=== PATIENT | male | born 2000 | race Caucasian/White ===

== ENCOUNTER 2021-07-17 18:47 | Emergency (ER) | payer SELFPAY ==
[~2021-07-17] VITALS: Ht 182.9 cm; Wt 72.6 kg
[2021-07-17] MEDS ORDERED: TYLOPHEN500 MG PO (19:08)
== END 2021-07-17 19:42 | disposition home or self-care (01) ==
LOC: ED 18:47
DX: R06.00 Dyspnea, unspecified (principal)
CPT/HCPCS: 99284

== ENCOUNTER 2021-09-25 11:14 | Emergency (ER) | payer BC ==
[~2021-09-25] VITALS: Ht 182.9 cm; Wt 73.8 kg
[~2021-09-25 11:14] MED LIST: TYLOPHEN500 MG PO
--- OUTSIDE RECORDS SUMMARY | 2021-09-25 11:22 | XMS ---
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 [facility] has no Care Guidelines for this patient. Kari VISIT COUNT (12 MO.) 6 [place] [address] TOTAL 8 NOTE: Visits indicate total known visits. ED/UCC VISIT TRACKING (12 MO.) 09/25/2021 11:14 JOSE FRANCISCO Vasquez [place] TYPE: Emergency COMPLAINT: - ANXIETY 07/17/2021 18:48 [facility] [place] [facility] [place] TYPE: Emergency COMPLAINT: - DIFFICULTY BREATHING DIAGNOSES: - Shortness of breath - Dyspnea, unspecified 06/10/2021 15:37 [employer] OR TYPE: Emergency COMPLAINT: - chest pain DIAGNOSES: - chest pain 05/01/2021 08:44 [employer] OR TYPE: Emergency DIAGNOSES: - Anxiety disorder, unspecified - dizziness 04/14/2021 17:09 [facility] Emergency DIAGNOSES: - Chest pain, unspecified - CHEST PAIN 04/01/2021 19:34 [employer] [place] OR TYPE: Emergency DIAGNOSES: - dizzy - Dehydration - Generalized anxiety disorder 10/13/2020 09:39 [employer] [place] OR TYPE: Emergency DIAGNOSES: - OVER MEDICATED HEART RACING - Anxiety disorder, unspecified - Palpitations 10/11/2020 16:04 [employer] [place] OR TYPE: Emergency DIAGNOSES: - CHEST HEAVINESS AND DIFFICULTY BREATHING - Other chest pain INPATIENT VISIT TRACKING (12 MO.) No inpatient visits to display in this time frame [id number]
--- NOTE | 2021-09-25 19:57 | EKG ---
[facility] [address] [place], [place] [address] Signed Normal sinus rhythm Rightward axis Borderline ECG No previous ECGs available Confirmed by WILL RODRIGUEZ DO ([id number]) on 09/25/2021 7:57:17 PM Electronically Signed By: WILL RODRIGUEZ DO 09/25/211956 PATIENT NAME: JILILIANA DE Electrocardiogram DATE OF : [birth year] PHYSICIAN: WILL RODRIGUEZ DO REPORT #: [id number] REPORT IS CONFIDENTIAL AND NOT TO BE RELEASED WITHOUT AUTHORIZATION
== END 2021-09-25 18:15 | disposition home or self-care (01) ==
LOC: ED 11:14
DX: F41.9 Anxiety disorder, unspecified (principal)
CPT/HCPCS: 71046; 93005; 93010; 99283-25

== ENCOUNTER 2021-09-30 09:48 | Emergency (ER) | payer BC ==
[~2021-09-30] VITALS: Ht 182.9 cm; Wt 72.7 kg
--- OUTSIDE RECORDS SUMMARY | 2021-09-30 09:56 | XMS ---
PreManage Notification: ILIANA LEY Security Flooring Machine Feeder Events No recent Security Events currently on file CRITERIA MET - [facility] - 2 Visits in 30 Days - 6 ED Visits in 6 Months CARE PROVIDERS There are no care providers on record at this time. [facility] has no Care Guidelines for this patient. Kari VISIT COUNT (12 MO.) 6 [facility] NOTE: Visits indicate total known visits. ED/UCC VISIT TRACKING (12 MO.) 09/30/2021 09:49 [facility] [place] TYPE: Emergency COMPLAINT: - CONGESTION 09/25/2021 11:14 [facility] FRANC[facility]CO Vasquez OR TYPE: Emergency COMPLAINT: - ANXIETY DIAGNOSES: - Anxiety disorder, unspecified 07/17/2021 18:48 [facility]CO [facility] [place] TYPE: Emergency COMPLAINT: - DIFFICULTY BREATHING DIAGNOSES: - Shortness of breath - Dyspnea, unspecified 06/10/2021 15:37 [facility] [employer] [place] TYPE: Emergency COMPLAINT: - chest pain DIAGNOSES: - chest pain 05/01/2021 08:44 [facility] TYPE: Emergency DIAGNOSES: - Anxiety disorder, unspecified - dizziness 04/14/2021 17:09 [facility] [place] TYPE: Emergency DIAGNOSES: - Chest pain, unspecified - CHEST PAIN 04/01/2021 19:34 [employer] [employer] [place] TYPE: Emergency DIAGNOSES: - dizzy - Dehydration - Generalized anxiety disorder 10/13/2020 09:39 [employer] [place] TYPE: Emergency DIAGNOSES: - OVER MEDICATED HEART RACING - Anxiety disorder, unspecified - Palpitations 10/11/2020 16:04 [employer] [place] TYPE: Emergency DIAGNOSES: - CHEST HEAVINESS AND DIFFICULTY BREATHING - Other chest pain INPATIENT VISIT TRACKING (12 MO.) No inpatient visits to display in this time frame [email or web address][employer] [id number]
[2021-09-30] MEDS ORDERED: ATIVAN1 MG PO (14:56)
== END 2021-09-30 15:03 | disposition home or self-care (01) ==
LOC: ED 09:48
DX: F41.9 Anxiety disorder, unspecified (principal)
CPT/HCPCS: 99283

== ENCOUNTER 2021-12-19 13:27 | Emergency (ER) | payer BC ==
[~2021-12-19] VITALS: Ht 182.9 cm; Wt 71.4 kg
[~2021-12-19 13:27] MED LIST changes: +ATIVAN1 MG PO
--- OUTSIDE RECORDS SUMMARY | 2021-12-19 13:30 | XMS ---
PreManage Notification: ILIANA LEY Security Pattern Maker Events No recent Security Events currently on file CRITERIA MET - Group Notification CARE PROVIDERS SARAH [facility] Current PHONE: Unknown Willow has no Care Guidelines for this patient. Care History Medical/Surgical 10/01/2021 [facility] - CHW CONTACTED PATIENT-PATIENT STATED HE JUST MOVED TO THE AREA AND DID NOT WANT TO PROVIDE HIS CURRENT ADDRESS. - PATIENT STATED HE WILL LOOK AT THE PROVIDER LIST THE ED PROVIDED AND SET UP A PCP IN THE AREA. - CHW ASKED IF HE WOULD LIKE ASSISTANCE WITH SETTING UP AN APT AND PATIENT DECLINED. E.D. VISIT COUNT (12 MO.) 4 [facility] 4 [facility] TOTAL 8 NOTE: Visits indicate total known visits. ED/UCC VISIT TRACKING (12 MO.) 12/19/2021 13:28 [facility] FR[facility]CO [facility] [place] TYPE: Emergency COMPLAINT: - L SIDE RIB PAIN, DIFFICULTY BREATHING 09/30/2021 09:49 [facility] OR TYPE: Emergency COMPLAINT: - CONGESTION DIAGNOSES: - Anxiety disorder, unspecified 09/25/2021 11:14 [facility] OR TYPE: Emergency COMPLAINT: - ANXIETY DIAGNOSES: - Anxiety disorder, unspecified 07/17/2021 18:48 [facility] [place] TYPE: Emergency COMPLAINT: - DIFFICULTY BREATHING DIAGNOSES: - Shortness of breath - Dyspnea, unspecified 06/10/2021 15:37 [employer] OR TYPE: Emergency COMPLAINT: - chest pain DIAGNOSES: - chest pain 05/01/2021 08:44 [employer] OR TYPE: Emergency DIAGNOSES: - Anxiety disorder, unspecified - dizziness 04/14/2021 17:09 [employer] OR TYPE: Emergency DIAGNOSES: - Chest pain, unspecified - CHEST PAIN 04/01/2021 19:34 [facility] OR TYPE: Emergency DIAGNOSES: - dizzy - Dehydration - Generalized anxiety disorder INPATIENT VISIT TRACKING (12 MO.) No inpatient visits to display in this time frame [id number]
[2021-12-19] MEDS ORDERED: HYDROXYZINE HCL25 MG PO (14:15)
--- NOTE | 2021-12-19 18:03 | EKG ---
[facility] [address] [place] [address] Signed Normal sinus rhythm Normal ECG When compared with ECG of 25-SEP-2021 12:03, No significant change was found Confirmed by RAZIA PARRA MD ([id number]) on 12/19/2021 6:03:21 PM Electronically Signed By: RAZIA PARRA MD 12/19/211802 PATIENT NAME: ILIANA LEY CA Electrocardiogram DATE OF : [birth year] PHYSICIAN: RAZIA PARRA MD REPORT #: [id number] REPORT IS CONFIDENTIAL AND NOT TO BE RELEASED WITHOUT AUTHORIZATION
== END 2021-12-19 14:30 | disposition home or self-care (01) ==
LOC: ED 13:27
DX: R07.89 Other chest pain (principal); F41.9 Anxiety disorder, unspecified
CPT/HCPCS: 71046; 93005; 93010; 99285-25; A9270

== ENCOUNTER → 2022-01-18 | Emergency (ER) | payer BC ==
[~2022-01-18] VITALS: Ht 182.9 cm; Wt 68.9 kg
[~2022-01-18] MED LIST changes: +HYDROXYZINE HCL25 MG PO; +XANAX0.5 MG PO
--- OUTSIDE RECORDS SUMMARY | 2022-01-18 19:34 | XMS ---
PreManage Notification: ILIANA LEY Security Professional Development Manager Events No recent Security Events currently on file CRITERIA MET - [facility] - 2 Visits in 30 Days CARE PROVIDERS DEBBIE MICHAEL Physician Wine Blender Current PHONE: [phone] ANABELLA SMITH [facility] Current PHONE: Unknown [facility] has no Care Guidelines for this patient. Care History Medical/Surgical 10/01/2021 [facility] - CHW CONTACTED PATIENT-PATIENT STATED HE JUST MOVED TO THE AREA AND DID NOT WANT TO PROVIDE HIS CURRENT ADDRESS. - PATIENT STATED HE WILL LOOK AT THE PROVIDER LIST THE ED PROVIDED AND SET UP A PCP IN THE AREA. - CHW ASKED IF HE WOULD LIKE ASSISTANCE WITH SETTING UP AN APT AND PATIENT DECLINED. E.D. VISIT COUNT (12 MO.) 4 [facility] [address] [facility] [address] [place] TOTAL 9 NOTE: Visits indicate total known visits. ED/UCC VISIT TRACKING (12 MO.) 01/18/2022 19:27 [facility] [place] TYPE: Emergency COMPLAINT: - CHEST PAIN 12/19/2021 13:28 [facility] [place] TYPE: Emergency COMPLAINT: - L SIDE RIB PAIN, DIFFICULTY BREATHING DIAGNOSES: - Anxiety disorder, unspecified - Other chest pain 09/30/2021 09:49 [facility] [place] TYPE: Emergency COMPLAINT: - CONGESTION DIAGNOSES: - Anxiety disorder, unspecified 09/25/2021 11:14 [facility] [place] TYPE: Emergency COMPLAINT: - ANXIETY DIAGNOSES: - Anxiety disorder, unspecified 07/17/2021 18:48 [facility] [place] TYPE: Emergency COMPLAINT: - DIFFICULTY BREATHING DIAGNOSES: - Shortness of breath - Dyspnea, unspecified 06/10/2021 15:37 [facility] [place] TYPE: Emergency COMPLAINT: - chest pain DIAGNOSES: - chest pain 05/01/2021 08:44 [facility] OR TYPE: Emergency DIAGNOSES: - Anxiety disorder, unspecified - dizziness 04/14/2021 17:09 [facility] OR TYPE: Emergency DIAGNOSES: - Chest pain, unspecified - CHEST PAIN 04/01/2021 19:34 [facility] [place] TYPE: Emergency DIAGNOSES: - dizzy - Dehydration - Generalized anxiety disorder INPATIENT VISIT TRACKING (12 MO.) No inpatient visits to display in this time frame [email or web address]
--- NOTE | 2022-01-19 08:08 | EKG ---
[facility] [address] [place], [place] [address] Signed Normal sinus rhythm Normal ECG No previous ECGs available Confirmed by DANIELLE MALDONADO MD ([id number]) on 01/19/2022 8:07:41 AM Electronically Signed By: DANIELLE MALDONADO MD 01/19/22 0808 PATIENT NAME: ILIANA LEY REINASUZANNAMILY ND Electrocardiogram DATE OF : [birth year] PHYSICIAN: DANIELLE MALDONADO MD REPORT #: [id number] REPORT IS CONFIDENTIAL AND NOT TO BE RELEASED WITHOUT AUTHORIZATION
== END ==
LOC: ED 19:27
DX: F41.9 Anxiety disorder, unspecified (principal); F32.A Depression, unspecified
CPT/HCPCS: 93005; 93010; 99283-25

== ENCOUNTER 2022-02-26 | Emergency (ER) | payer BC ==
[~2022-02-26] VITALS: Ht 182.9 cm; Wt 73.0 kg
--- OUTSIDE RECORDS SUMMARY | 2022-02-26 00:05 | XMS ---
PreManage Notification: ILIANA LEY Security Publications Sales Representative Events 1 event(s) in the past 18 months Most recent security events: Other at [facility] 02/03/2022 10:03 Details: PATIENT LWBS CRITERIA MET - 6 ED Visits in 6 Months - [facility] - 2 Visits in 30 Days CARE PROVIDERS DEBBIE MICHAEL Physician Bodybuilder Current PHONE: [phone] ANABELLA SMITH [facility] Current PHONE: Unknown [facility] has no Care Guidelines for this patient. Care History Medical/Surgical 10/01/2021 [facility] - CHW CONTACTED PATIENT-PATIENT STATED HE JUST MOVED TO THE AREA AND DID NOT WANT TO PROVIDE HIS CURRENT ADDRESS. - PATIENT STATED HE WILL LOOK AT THE PROVIDER LIST THE ED PROVIDED AND SET UP A PCP IN THE AREA. - CHW ASKED IF HE WOULD LIKE ASSISTANCE WITH SETTING UP AN APT AND PATIENT DECLINED. E.D. VISIT COUNT (12 MO.) 5 [facility] 7 [facility] [address] [facility] [place] TOTAL 12 NOTE: Visits indicate total known visits. ED/UCC VISIT TRACKING (12 MO.) 02/26/2022 00:02 [facility] [place] TYPE: Emergency COMPLAINT: - VISION PROBLEM/ EYE PAIN 02/12/2022 11:09 [facility] [place] TYPE: Emergency DIAGNOSES: - Laceration without foreign body of left hand, initial encounter - Laceration without foreign body of unspecified finger without damage to nail, initial encounter - LEFT HAND LACERATION OJI 02/12/22 02/03/2022 10:03 [facility]CO [facility] [place] TYPE: Emergency COMPLAINT: - NAUSEA, PANICK ATTACKS, HEADACHE 01/18/2022 19:27 [facility] [place] TYPE: Emergency COMPLAINT: - CHEST PAIN DIAGNOSES: - Anxiety disorder, unspecified - Other chest pain - DEPRESSION, UNSPECIFIED - Depression, unspecified 12/19/2021 13:28 [facility] [place] TYPE: Emergency COMPLAINT: - L SIDE RIB PAIN, DIFFICULTY BREATHING DIAGNOSES: - Anxiety disorder, unspecified - Other chest pain 09/30/2021 09:49 [facility] [place] TYPE: Emergency COMPLAINT: - CONGESTION DIAGNOSES: - Anxiety disorder, unspecified 09/25/2021 11:14 [facility] [facility] [place] TYPE: Emergency COMPLAINT: - ANXIETY DIAGNOSES: - Anxiety disorder, unspecified 07/17/2021 18:48 [facility] [facility] [place] TYPE: Emergency COMPLAINT: - DIFFICULTY BREATHING DIAGNOSES: - Shortness of breath - Dyspnea, unspecified 06/10/2021 15:37 [facility] OR TYPE: Emergency COMPLAINT: - chest pain DIAGNOSES: - chest pain 05/01/2021 08:44 [facility] [place] TYPE: Emergency DIAGNOSES: - Anxiety disorder, unspecified - dizziness 04/14/2021 17:09 [facility] OR TYPE: Emergency DIAGNOSES: - Chest pain, unspecified - CHEST PAIN 04/01/2021 19:34 [facility] OR TYPE: Emergency DIAGNOSES: - dizzy - Dehydration - Generalized anxiety disorder INPATIENT VISIT TRACKING (12 MO.) No inpatient visits to display in this time frame [id number]
[2022-02-26] MEDS ORDERED: LAMOTRIGINE25 MG PO (00:20)
[2022-02-26] MEDS ORDERED: LORAZEPAM1 MG PO (00:21)
== END 2022-02-26 01:19 | disposition home or self-care (01) ==
LOC: ED
DX: H16.133 Photokeratitis, bilateral (principal); Z79.899 Other long term (current) drug therapy
CPT/HCPCS: 99283; A9270

== ENCOUNTER 2022-03-05 03:03 | Emergency (ER) | payer BC, OTHER ==
[~2022-03-05] VITALS: Ht 182.9 cm; Wt 72.6 kg
[~2022-03-05 03:03] MED LIST changes: +LAMOTRIGINE25 MG PO; +LORAZEPAM1 MG PO
--- OUTSIDE RECORDS SUMMARY | 2022-03-05 03:06 | XMS ---
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 Care History Medical/Surgical 10/01/2021 [facility] - CHW CONTACTED PATIENT-PATIENT STATED [...] DECLINED. E.D. VISIT COUNT (12 MO.) 5 [facility] [address] [facility] [address] Kurt [place] TOTAL 13 NOTE: Visits indicate total known visits. ED/UCC VISIT TRACKING (12 MO.) 03/05/2022 03:04 [facility] FR[facility]CO [place] TYPE: Emergency COMPLAINT: - MEDICATION PROBLEM 02/26/2022 00:02 [facility] [place] TYPE: Emergency COMPLAINT: - VISION PROBLEM/ EYE PAIN DIAGNOSES: - Photokeratitis, bilateral - Other snf (current) drug therapy - Other specified disorders of eye and adnexa - Other keratitis 02/12/2022 11:09 [facility] OR TYPE: Emergency DIAGNOSES: - Laceration without foreign body of left hand, initial encounter - Laceration without foreign body of unspecified finger without damage to nail, initial encounter - LEFT HAND LACERATION FRANKIE 02/12/22 02/03/2022 10:03 [facility]CO [facility] [place] TYPE: Emergency COMPLAINT: - NAUSEA, PANICK ATTACKS, HEADACHE 01/18/2022 19:27 [facility] [place] TYPE: Emergency COMPLAINT: - CHEST PAIN DIAGNOSES: - Anxiety disorder, unspecified - Other chest pain - DEPRESSION, UNSPECIFIED - Depression, unspecified 12/19/2021 13:28 [facility] [place] TYPE: [...] of breath - Dyspnea, unspecified 06/10/2021 15:37 [facility] [place] TYPE: Emergency COMPLAINT: - chest pain DIAGNOSES: - chest pain 05/01/2021 08:44 [facility] [place] TYPE: Emergency DIAGNOSES: - Anxiety disorder, unspecified - dizziness 04/14/2021 17:09 [facility] [place] TYPE: Emergency DIAGNOSES: - Chest pain, unspecified - CHEST PAIN 04/01/2021 19:34 [facility] [place] TYPE: Emergency DIAGNOSES: - dizzy - Dehydration - Generalized anxiety disorder INPATIENT VISIT TRACKING (12 MO.) No inpatient visits to display in this time frame [email or web address]
== END 2022-03-05 05:04 | disposition home or self-care (01) ==
LOC: ED 03:03
DX: F32.A Depression, unspecified (principal); Z79.899 Other long term (current) drug therapy
CPT/HCPCS: 99282

== ENCOUNTER 2022-03-13 22:34 | Emergency (ER) | payer BC, OTHER ==
[~2022-03-13] VITALS: Ht 182.9 cm; Wt 72.6 kg
--- OUTSIDE RECORDS SUMMARY | 2022-03-13 22:36 | XMS ---
PreManage Notification: ILIANA LEY Security Radiologic Technician Events 1 event(s) in the past 18 months Most recent security events: Other at [facility] 02/03/2022 10:03 Details: PATIENT LWBS CRITERIA MET - PDMP - [facility] - 2 Visits in 30 Days - 6 ED Visits in 6 Months CARE PROVIDERS DEBBIE MICHAEL Physician Automobile Glass Technician Current PHONE: [phone] ANABELLA SMITH [facility] Current PHONE: Unknown Willow has no Care Guidelines for this patient. Care History Medical/Surgical 10/01/2021 [facility] - CHW CONTACTED PATIENT-PATIENT STATED HE [...] E.D. VISIT COUNT (12 MO.) 5 [facility] [address] [facility] [address] [place] TOTAL 14 NOTE: Visits indicate total known visits. ED/UCC VISIT TRACKING (12 MO.) 03/13/2022 22:35 [facility] [place] TYPE: Emergency COMPLAINT: - CHEST PAIN 03/05/2022 03:04 [facility] [place] TYPE: Emergency COMPLAINT: - MEDICATION PROBLEM DIAGNOSES: - Anxiety disorder, unspecified - Other camouflage specialist (current) drug therapy - Depression, unspecified 02/26/2022 00:02 [facility] [place] TYPE: Emergency COMPLAINT: - VISION PROBLEM/ EYE PAIN DIAGNOSES: - Photokeratitis, bilateral - Other intermediate (current) drug therapy - Other specified disorders of eye and adnexa - Other keratitis 02/12/2022 11:09 [facility] OR TYPE: Emergency DIAGNOSES: - Laceration without foreign body of left hand, initial encounter - Laceration without foreign body of unspecified finger without damage to nail, initial encounter - LEFT HAND LACERATION FRANKIE 02/12/22 02/03/2022 10:03 [facility] [place] TYPE: Emergency COMPLAINT: - NAUSEA, PANICK ATTACKS, HEADACHE 01/18/2022 19:[address] [facility] [address] [place] TYPE: Emergency COMPLAINT: - CHEST PAIN DIAGNOSES: - Anxiety disorder, unspecified - Other chest pain - DEPRESSION, UNSPECIFIED - Depression, unspecified 12/19/2021 13:28 [facility] [place] TYPE: Emergency COMPLAINT: - L SIDE RIB PAIN, DIFFICULTY BREATHING DIAGNOSES: - Anxiety disorder, unspecified - Other chest pain 09/30/2021 09:[address] [facility] [address] [place] TYPE: Emergency COMPLAINT: - CONGESTION DIAGNOSES: - Anxiety disorder, unspecified 09/25/2021 11:14 [facility] [place] TYPE: Emergency COMPLAINT: - ANXIETY DIAGNOSES: - Anxiety disorder, unspecified 07/17/2021 18:48 [facility] [place] TYPE: Emergency COMPLAINT: - DIFFICULTY BREATHING DIAGNOSES: - Shortness of breath - Dyspnea, unspecified 06/10/2021 15:37 [employer] [place] TYPE: Emergency COMPLAINT: - chest pain DIAGNOSES: - chest pain 05/01/2021 08:44 [facility]: Emergency DIAGNOSES: - Anxiety disorder, unspecified - dizziness 04/14/2021 17:09 [facility] [place] TYPE: Emergency DIAGNOSES: - Chest pain, unspecified - CHEST PAIN 04/01/2021 19:34 [facility] OR TYPE: Emergency DIAGNOSES: - dizzy - Dehydration - Generalized anxiety disorder INPATIENT VISIT TRACKING (12 MO.) No inpatient visits to display in this time frame [id number]
[2022-03-13] MEDS ORDERED: HYDROXYZINE HCL25 MG PO (22:45)
--- NOTE | 2022-03-14 15:35 | EKG ---
[facility] [address] [facility] [place], [place] [address] Signed Normal sinus rhythm Normal ECG No previous ECGs available Confirmed by RAZIA PARRA MD ([id number]) on 03/14/2022 3:34:58 PM Electronically Signed By: RAZIA PARRA MD 03/14/22 1535 PATIENT NAME: JILILIANA IA Electrocardiogram DATE OF : [birth year] PHYSICIAN: RAZIA PARRA MD REPORT #: [id number] REPORT IS CONFIDENTIAL AND NOT TO BE RELEASED WITHOUT AUTHORIZATION
== END 2022-03-13 23:45 | disposition home or self-care (01) ==
LOC: ED 22:34
DX: R07.89 Other chest pain (principal); Z79.899 Other long term (current) drug therapy
CPT/HCPCS: 36415; 71046; 84484; 85379; 93005; 93010; 99285-25

== ENCOUNTER 2022-03-23 02:22 | Emergency (ER) | payer BC, OTHER ==
[~2022-03-23] VITALS: Ht 182.9 cm; Wt 79.0 kg
--- OUTSIDE RECORDS SUMMARY | 2022-03-23 02:24 | XMS ---
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 E.D. VISIT COUNT (12 MO.) 5 [facility] [address] [facility] [address] [place] TOTAL 16 NOTE: Visits indicate total known visits. ED/UCC VISIT TRACKING (12 MO.) 03/23/2022 02:23 [facility] [place] TYPE: Emergency COMPLAINT: - CHEST PAIN 03/16/2022 16:00 [facility] [place] TYPE: Emergency COMPLAINT: - NAUSEA,WEAKNESS DIAGNOSES: - Headache, unspecified - Other malaise - Generalized hyperhidrosis - Nausea 03/13/2022 22:35 [facility] [address] [place] TYPE: Emergency COMPLAINT: - CHEST PAIN DIAGNOSES: - Other refining still operator (current) drug therapy - Other chest pain 03/05/2022 03:04 [facility] [place] TYPE: Emergency COMPLAINT: - MEDICATION PROBLEM DIAGNOSES: - Anxiety disorder, unspecified - Other refining still operator (current) drug therapy - Depression, unspecified 02/26/2022 00:[address] [facility] [address] [facility] [place] TYPE: Emergency COMPLAINT: - VISION PROBLEM/ EYE PAIN DIAGNOSES: - Photokeratitis, bilateral - Other refining still operator (current) drug therapy - Other specified disorders of eye and adnexa - Other keratitis 02/12/2022 11:09 [facility] OR TYPE: Emergency DIAGNOSES: - Laceration [...] breath - Dyspnea, unspecified 06/10/2021 15:37 [facility] OR TYPE: Emergency COMPLAINT: - chest pain DIAGNOSES: - chest pain 05/01/2021 08:44 [employer] [place] TYPE: Emergency DIAGNOSES: - Anxiety disorder, unspecified - dizziness 04/14/2021 17:09 [facility] [facility] [place] TYPE: Emergency DIAGNOSES: - Chest pain, unspecified - CHEST PAIN 04/01/2021 19:34 Count Includes [facility] [employer] [place] TYPE: Emergency DIAGNOSES: - dizzy - Dehydration - Generalized anxiety disorder INPATIENT VISIT TRACKING (12 MO.) No inpatient visits to display in this time frame [id number]
--- NOTE | 2022-03-23 08:59 | EKG ---
[facility] [address] [facility] [address] [facility] [place] [address] Signed Normal sinus rhythm with sinus arrhythmia Normal ECG When compared with ECG of 16-MAR-2022 17:40, No significant change was found Confirmed by RAZIA PARRA MD ([id number]) on 03/23/2022 8:59:04 AM Electronically Signed By: RAZIA PARRA MD 03/23/22 0859 PATIENT NAME: ILIANA LEY NE Electrocardiogram DATE OF : [birth year] PHYSICIAN: RAZIA PARRA MD REPORT #: [id number] REPORT IS CONFIDENTIAL AND NOT TO BE RELEASED WITHOUT AUTHORIZATION
== END 2022-03-23 03:27 | disposition home or self-care (01) ==
LOC: ED 02:22
DX: R07.89 Other chest pain (principal); Z79.899 Other long term (current) drug therapy
CPT/HCPCS: 71045; 93005; 93010; 99285-25

== ENCOUNTER 2022-04-11 19:48 | Emergency (ER) | payer BC, OTHER ==
[~2022-04-11] VITALS: Ht 182.9 cm; Wt 78.9 kg
--- OUTSIDE RECORDS SUMMARY | 2022-04-11 19:52 | XMS ---
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 Care History Medical/Surgical 10/01/2021 [facility] - CHW CONTACTED PATIENT-PATIENT STATED [...] PATIENT DECLINED. E.D. VISIT COUNT (12 MO.) [address] [place] [address] 12 [facility] TOTAL 16 NOTE: Visits indicate total known visits. ED/UCC VISIT TRACKING (12 MO.) 04/11/2022 19:49 [facility] [place] TYPE: Emergency COMPLAINT: - HEAD PRESSURE 03/23/2022 02:23 [facility] [place] TYPE: Emergency COMPLAINT: - CHEST PAIN DIAGNOSES: - Other rat exterminator (current) drug therapy - Other chest pain 03/16/2022 16:00 [facility] [place] TYPE: Emergency COMPLAINT: - NAUSEA,WEAKNESS DIAGNOSES: - Headache, unspecified - Other malaise - Generalized hyperhidrosis - Nausea 03/13/2022 22:35 [facility] [place] TYPE: Emergency COMPLAINT: - CHEST PAIN DIAGNOSES: - Other fpc (current) drug therapy - Other chest pain 03/05/2022 03:04 [facility] [place] TYPE: Emergency COMPLAINT: - MEDICATION PROBLEM DIAGNOSES: - Anxiety disorder, unspecified - Other fpc (current) drug therapy - Depression, unspecified 02/26/2022 00:02 [facility] [place] TYPE: Emergency COMPLAINT: - VISION PROBLEM/ EYE PAIN DIAGNOSES: - Photokeratitis, bilateral - Other fpc (current) drug therapy - Other specified disorders of eye and adnexa - Other keratitis 02/12/2022 11:09 [facility] [place] TYPE: Emergency DIAGNOSES: - Laceration [...] of breath - Dyspnea, unspecified 06/10/2021 15:37 [facility] [place] TYPE: Emergency COMPLAINT: - chest pain DIAGNOSES: - chest pain 05/01/2021 08:44 [facility] [place] TYPE: Emergency DIAGNOSES: - Anxiety disorder, unspecified - dizziness 04/14/2021 17:09 [facility] [place] TYPE: Emergency DIAGNOSES: - Chest pain, unspecified - CHEST PAIN INPATIENT VISIT TRACKING (12 MO.) No inpatient visits to display in this time frame [id number]
[2022-04-11] MEDS ORDERED: BUTALB-ACETAMI1 EACH PO (22:49)
== END 2022-04-11 23:23 | disposition home or self-care (01) ==
LOC: ED 19:48
DX: R51.9 Headache, unspecified (principal); F41.9 Anxiety disorder, unspecified
CPT/HCPCS: 96374; 96375; 99283-25; J1200; J1885; J3030; J7030

== ENCOUNTER 2022-04-15 01:14 | Emergency (ER) | payer BC, OTHER ==
[~2022-04-15] VITALS: Ht 182.9 cm; Wt 78.9 kg
[~2022-04-15 01:14] MED LIST changes: +BUTALB-ACETAMI1 EACH PO
--- OUTSIDE RECORDS SUMMARY | 2022-04-15 01:16 | XMS ---
PreManage Notification: ILIANA LEY Security Campaign Coordinator Events 1 event(s) in the past 18 months Most recent security events: Other at [facility] 02/03/2022 10:03 Details: PATIENT LWBS CRITERIA MET - [facility] - 2 Visits in 30 Days - PDMP - 6 ED Visits in 6 Months CARE PROVIDERS DEBBIE MICHAEL Physician Cardroom Drawing Runner Current PHONE: [phone] ANABELLA SMITH [facility] Current PHONE: Unknown Willow has no Care Guidelines for this patient. Care History Medical/Surgical 10/01/2021 [facility] - CHW CONTACTED PATIENT-PATIENT STATED HE JUST MOVED TO THE AREA AND DID NOT WANT TO PROVIDE HIS CURRENT ADDRESS. - PATIENT STATED HE WILL LOOK AT THE PROVIDER LIST THE ED PROVIDED AND SET UP A PCP IN THE AREA. - CHW ASKED IF HE WOULD LIKE ASSISTANCE WITH SETTING UP AN APT AND PATIENT DECLINED. E.D. VISIT COUNT (12 MO.) 3 [facility] 13 [facility] [place] TOTAL 16 NOTE: Visits indicate total known visits. ED/UCC VISIT TRACKING (12 MO.) 2022 01:15 [facility] [place] TYPE: Emergency COMPLAINT: - EYE PAIN/ PROBLEM 04/11/2022 19:49 [facility] [place] TYPE: Emergency COMPLAINT: - HEAD PRESSURE DIAGNOSES: - Anxiety disorder, unspecified - Headache, unspecified 03/23/2022 02:23 [facility] [place] TYPE: Emergency COMPLAINT: - CHEST PAIN DIAGNOSES: - Other fci (current) drug therapy - Other chest pain 03/16/2022 16:00 [facility] [place] TYPE: Emergency COMPLAINT: - NAUSEA,WEAKNESS DIAGNOSES: - Headache, unspecified - Other malaise - Generalized hyperhidrosis - Nausea 03/13/2022 22:35 [facility] [place] TYPE: Emergency COMPLAINT: - CHEST PAIN DIAGNOSES: - Other intermediate teacher (current) drug therapy - Other chest pain 03/05/2022 03:04 [facility] [place] TYPE: Emergency COMPLAINT: - MEDICATION PROBLEM DIAGNOSES: - Anxiety disorder, unspecified - Other fci (current) drug therapy - Depression, unspecified 02/26/2022 00:02 [facility] [place] TYPE: Emergency COMPLAINT: - VISION PROBLEM/ EYE PAIN DIAGNOSES: - Photokeratitis, bilateral - Other intermediate teacher (current) drug therapy - Other specified disorders of eye and adnexa - Other keratitis 02/12/2022 11:09 [facility] [place] TYPE: Emergency DIAGNOSES: - Laceration [...] of breath - Dyspnea, unspecified 06/10/2021 15:37 [facility] [place] TYPE: Emergency COMPLAINT: - chest pain DIAGNOSES: - chest pain 05/01/2021 08:44 [employer] [facility] [place] TYPE: Emergency DIAGNOSES: - Anxiety disorder, unspecified - dizziness INPATIENT VISIT TRACKING (12 MO.) No inpatient visits to display in this time frame [email or web address]
== END 2022-04-15 02:20 | disposition home or self-care (01) ==
LOC: ED 01:14
DX: H16.133 Photokeratitis, bilateral (principal)
CPT/HCPCS: 99283

== ENCOUNTER 2022-05-12 20:11 | Emergency (ER) | payer BC, OTHER ==
[~2022-05-12] VITALS: Ht 182.9 cm; Wt 69.0 kg
--- OUTSIDE RECORDS SUMMARY | 2022-05-12 20:14 | XMS ---
PreManage Notification: ILIANA LEY Security Annealer Helper Events 1 event(s) in the past 18 months Most recent security events: Other at [facility] 02/03/2022 10:03 Details: PATIENT LWBS CRITERIA MET - PDMP - 6 ED Visits in 6 Months - [facility] - 2 Visits in 30 Days CARE PROVIDERS DEBBIE MICHAEL Physician Tv Technician Current PHONE: [phone] ANABELLA SMITH [facility] Current PHONE: Unknown Willow has no Care Guidelines for this patient. Care History Medical/Surgical 10/01/2021 [facility] - CHW CONTACTED PATIENT-PATIENT STATED HE JUST MOVED TO THE AREA AND DID NOT WANT TO PROVIDE HIS CURRENT ADDRESS. - PATIENT STATED HE WILL LOOK AT THE PROVIDER LIST THE ED PROVIDED AND SET UP A PCP IN THE AREA. - CHW ASKED IF HE WOULD LIKE ASSISTANCE WITH SETTING UP AN APT AND PATIENT DECLINED. E.D. VISIT COUNT (12 MO.) 2 [facility] 14 [facility] [address] [facility] [place] TOTAL 16 NOTE: Visits indicate total known visits. ED/UCC VISIT TRACKING (12 MO.) 05/12/2022 20:11 [facility] [place] TYPE: Emergency COMPLAINT: - CHEST PAIN 2022 01:15 [facility] [place] TYPE: Emergency COMPLAINT: - EYE PAIN/ PROBLEM DIAGNOSES: - Photokeratitis, bilateral 04/11/2022 19:49 [facility] [place] TYPE: Emergency COMPLAINT: - HEAD PRESSURE DIAGNOSES: - Anxiety disorder, unspecified - Headache, unspecified 03/23/2022 02:23 [facility] [place] TYPE: Emergency COMPLAINT: - CHEST PAIN DIAGNOSES: - Other cable wirer (current) drug therapy - Other chest pain 03/16/2022 16:00 [facility] [place] TYPE: Emergency COMPLAINT: - NAUSEA,WEAKNESS DIAGNOSES: - Headache, unspecified - Other malaise - Generalized hyperhidrosis - Nausea 03/13/2022 22:35 [facility] [place] TYPE: Emergency COMPLAINT: - CHEST PAIN DIAGNOSES: - Other intermediate (current) drug therapy - Other chest pain 03/05/2022 03:04 [facility] [place] TYPE: Emergency COMPLAINT: - MEDICATION PROBLEM DIAGNOSES: - Anxiety disorder, unspecified - Other intermediate (current) drug therapy - Depression, unspecified 02/26/2022 00:02 [facility] [place] TYPE: Emergency COMPLAINT: - VISION PROBLEM/ EYE PAIN DIAGNOSES: - Photokeratitis, bilateral - Other intermediate (current) drug therapy - Other specified disorders of eye and adnexa - Other keratitis 02/12/2022 11:09 [facility] [place] TYPE: Emergency DIAGNOSES: - Laceration without [...] of breath - Dyspnea, unspecified 06/10/2021 15:37 [facility] [place] TYPE: Emergency COMPLAINT: - chest pain DIAGNOSES: - chest pain INPATIENT VISIT TRACKING (12 MO.) No inpatient visits to display in this time frame [email or web address]
--- NOTE | 2022-05-13 12:56 | EKG ---
[facility] [address] [facility] [place] [address] Signed Normal sinus rhythm Incomplete right bundle branch block Borderline ECG When compared with ECG of 23-MAR-2022 02:29, Incomplete right bundle branch block is now present Confirmed by RAZIA PARRA MD ([id number]) on 05/13/2022 12:56:39 PM Electronically Signed By: RAZIA PARRA MD 05/13/22 1256 PATIENT NAME: ILIANA LEY PR Electrocardiogram DATE OF : 89 PHYSICIAN: RAZIA PARRA MD REPORT #: [id number] REPORT IS CONFIDENTIAL AND NOT TO BE RELEASED WITHOUT AUTHORIZATION
== END 2022-05-12 20:50 | disposition left against medical advice (07) ==
LOC: ED 20:11
DX: R07.89 Other chest pain (principal); Z53.21 Procedure and treatment not carried out due to patient leaving prior to being seen by health care provider
CPT/HCPCS: 93005; 93010

== ENCOUNTER 2022-05-26 05:04 | Emergency (ER) | payer BC, OTHER ==
[~2022-05-26] VITALS: Ht 182.9 cm; Wt 69.0 kg
--- OUTSIDE RECORDS SUMMARY | 2022-05-26 05:06 | XMS ---
PreManage Notification: ILIANA LEY Security Outer Diameter Technician Events 1 event(s) in the past 18 months Most recent security events: Other at [facility] 02/03/2022 10:03 Details: PATIENT LWBS CRITERIA MET - PDMP - [facility] - 2 Visits in 30 Days - 6 ED Visits in 6 Months CARE PROVIDERS DEBBIE MICHAEL Physician Director Market Research Current PHONE: [phone] ANABELLA SMITH [facility] Current PHONE: Unknown Willow has no Care Guidelines for this patient. Care History Medical/Surgical 10/01/2021 [facility] - CHW CONTACTED PATIENT-PATIENT STATED [...] DECLINED. E.D. VISIT COUNT (12 MO.) 2 [facility] [address] [facility] [address] [place] TOTAL 17 NOTE: Visits indicate total known visits. ED/UCC VISIT TRACKING (12 MO.) 05/26/2022 05:05 [facility] [place] TYPE: Emergency COMPLAINT: - PANIC ATTACK 05/12/2022 20:11 [facility] [place] TYPE: Emergency COMPLAINT: - CHEST PAIN DIAGNOSES: - Procedure and treatment not carried out due to patient leaving prior to being seen by health care provider - Other chest pain 2022 01:15 [facility] [place] TYPE: Emergency COMPLAINT: - EYE PAIN/ PROBLEM DIAGNOSES: - Photokeratitis, bilateral 04/11/2022 19:49 [facility] [place] TYPE: Emergency COMPLAINT: - HEAD PRESSURE DIAGNOSES: - Anxiety disorder, unspecified - Headache, unspecified 03/23/2022 02:23 [facility] [place] TYPE: Emergency COMPLAINT: - CHEST PAIN DIAGNOSES: - 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 [facility] [place] TYPE: Emergency COMPLAINT: - MEDICATION PROBLEM DIAGNOSES: - Anxiety disorder, unspecified - Other watermelon harvesting supervisor (current) drug therapy - Depression, unspecified 02/26/2022 00:[address] [facility] [address] [facility] [place] TYPE: Emergency COMPLAINT: - VISION PROBLEM/ EYE PAIN DIAGNOSES: - Photokeratitis, bilateral - Other watermelon harvesting supervisor (current) drug therapy - Other specified disorders of eye and adnexa - Other keratitis 02/12/2022 11:09 [facility] [place] TYPE: Emergency DIAGNOSES: - Laceration [...] breath - Dyspnea, unspecified 06/10/2021 15:37 [facility] [place] TYPE: Emergency COMPLAINT: - chest pain DIAGNOSES: - chest pain INPATIENT VISIT TRACKING (12 MO.) No inpatient visits to display in this time frame [email or web address]
[2022-05-26] MEDS ORDERED: VISTARIL25 MG PO (05:18)
[2022-05-26] MEDS ORDERED: ATIVAN0.5 MG PO (06:17)
== END 2022-05-26 06:31 | disposition home or self-care (01) ==
LOC: ED 05:04
DX: F41.0 Panic disorder [episodic paroxysmal anxiety] (principal)
CPT/HCPCS: A9270

== ENCOUNTER 2022-06-14 10:44 | Emergency (ER) | payer BC, OTHER ==
[~2022-06-14] VITALS: Ht 182.9 cm; Wt 68.9 kg
[~2022-06-14 10:44] MED LIST changes: +ATIVAN0.5 MG PO; +VISTARIL25 MG PO
--- OUTSIDE RECORDS SUMMARY | 2022-06-14 10:46 | XMS ---
PreManage Notification: ILIANA LEY Security Principal Systems Architect Events 2 event(s) in the past 18 months Most recent security events: Elopement at [facility] 05/12/2022 20:11 - Patient eloped before treatment completed. - Patient with suicidal and/or homicidal ideations eloped. - Patient eloped with IV in place. Details: PATIENT LWBS Other at [facility] 02/03/2022 10:03 Details: PATIENT LWBS CRITERIA MET - PDMP - [facility] - 2 Visits in 30 Days - 6 ED Visits in 6 Months CARE PROVIDERS DEBBIE MICHAEL Physician Per Diem Nurse Current PHONE: [phone] ANABELLA SMITH [facility] Current PHONE: Unknown Willow has no Care Guidelines for this patient. Care History Medical/Surgical 10/01/2021 [facility] - CHW CONTACTED PATIENT-PATIENT STATED HE JUST MOVED TO THE AREA AND DID NOT WANT TO PROVIDE HIS CURRENT ADDRESS. - PATIENT STATED HE WILL LOOK AT THE PROVIDER LIST THE ED PROVIDED AND SET UP A PCP IN THE AREA. - CHW ASKED IF HE WOULD LIKE ASSISTANCE WITH SETTING UP AN APT AND PATIENT DECLINED. Kari VISIT COUNT (12 MO.) 1 [facility] [address] TOTAL 17 NOTE: Visits indicate total known visits. ED/UCC VISIT TRACKING (12 MO.) 06/14/2022 10:45 [facility] [place] TYPE: Emergency COMPLAINT: - CHEST PAIN 05/26/2022 05:05 [facility] [place] TYPE: Emergency COMPLAINT: - PANIC ATTACK DIAGNOSES: - Panic disorder [episodic paroxysmal anxiety] 05/12/2022 20:11 [facility] [place] TYPE: [...] - Headache, unspecified 03/23/2022 02:23 [facility] [place] TYPE: Emergency COMPLAINT: - CHEST PAIN DIAGNOSES: - Other skilled nursing (current) drug therapy - Other chest pain 03/16/2022 16:[address] [facility] [place] TYPE: Emergency COMPLAINT: - NAUSEA,WEAKNESS DIAGNOSES: - Headache, unspecified - Other malaise - Generalized hyperhidrosis - Nausea 03/13/2022 22:[address] [facility] [place] TYPE: Emergency COMPLAINT: - CHEST PAIN DIAGNOSES: - Other skilled nursing (current) drug therapy - Other chest pain 03/05/2022 03:[address] [facility] [place] TYPE: Emergency COMPLAINT: - MEDICATION PROBLEM DIAGNOSES: - Anxiety disorder, unspecified - Other intermediate project manager (current) drug therapy - Depression, unspecified 02/26/2022 00:02 [facility] [place] TYPE: Emergency COMPLAINT: - VISION PROBLEM/ EYE PAIN DIAGNOSES: - Photokeratitis, bilateral - Other skilled nursing (current) drug therapy - Other specified disorders of eye and adnexa - Other keratitis 02/12/2022 11:09 [facility] [place] TYPE: Emergency DIAGNOSES: - Laceration without foreign body of left hand, initial encounter - Laceration without foreign body of unspecified finger without damage to nail, initial encounter - LEFT HAND LACERATION IvanJI 02/12/22 02/03/2022 10:03 [facility] [place] [...] unspecified - Other chest pain 09/30/2021 09:49 [facility] [address] [place] TYPE: Emergency COMPLAINT: - CONGESTION DIAGNOSES: - Anxiety disorder, unspecified 09/25/2021 11:14 [facility] [address] [facility] [place] TYPE: Emergency COMPLAINT: - ANXIETY DIAGNOSES: - Anxiety disorder, unspecified 07/17/2021 18:[address] [facility] [address] [facility] [place] TYPE: Emergency COMPLAINT: - DIFFICULTY BREATHING DIAGNOSES: - Shortness of breath - Dyspnea, unspecified INPATIENT VISIT TRACKING (12 MO.) No inpatient visits to display in this time frame [email or web address]
--- NOTE | 2022-06-15 07:14 | EKG ---
[facility] [address] [facility] [place] [address] Signed Normal sinus rhythm with sinus arrhythmia Incomplete right bundle branch block Borderline ECG When compared with ECG of 12-MAY-2022 20:26, Nonspecific T wave abnormality no longer evident in Inferior leads QT has shortened Confirmed by DANIELLE MALDONADO MD ([id number]) on 06/15/2022 7:14:04 AM Electronically Signed By: DANIELLE MALDONADO MD 06/15/22 0714 PATIENT NAME: JILILIANA [place] Electrocardiogram DATE OF : [birth year] PHYSICIAN: DANIELLE MALDONADO MD REPORT #: [id number] REPORT IS CONFIDENTIAL AND NOT TO BE RELEASED WITHOUT AUTHORIZATION
== END 2022-06-14 12:11 | disposition home or self-care (01) ==
LOC: ED 10:44
DX: M54.6 Pain in thoracic spine (principal)
CPT/HCPCS: 71045; 93005; 93010; 99283-25

== ENCOUNTER 2022-07-07 10:50 | Emergency (ER) | payer BC, OTHER ==
[~2022-07-07] VITALS: Ht 182.9 cm; Wt 69.9 kg
--- NOTE | ~2022-07-07 | EKG ---
[facility] [address] [facility] [place], [place] [address] Draft EKG completed, results pending confirmation PATIENT NAME: ILIANA LEY AR Electrocardiogram DATE OF : 89 PHYSICIAN: PRELIMINARY REPORT #: [id number] REPORT IS CONFIDENTIAL AND NOT TO BE RELEASED WITHOUT AUTHORIZATION
--- OUTSIDE RECORDS SUMMARY | 2022-07-07 10:52 | XMS ---
PreManage Notification: ILIANA LEY Security Crime Scene Investigator Events 2 event(s) in the past 18 months Most recent security events: Elopement at [facility] 05/12/2022 20:11 - Patient eloped before treatment completed. - Patient with suicidal and/or homicidal ideations eloped. - Patient eloped with IV in place. Details: PATIENT LWBS Other at [facility] 02/03/2022 10:03 Details: PATIENT LWBS CRITERIA MET - 6 ED Visits in 6 Months - [facility] - 2 Visits in 30 Days CARE PROVIDERS DEBBIE MICHAEL Physician Driver Merchandiser Current PHONE: [phone] ANABELLA SMITH [facility] Current PHONE: Unknown Willow has no Care Guidelines for this patient. Care History Medical/Surgical 10/01/2021 [facility] - CHW CONTACTED PATIENT-PATIENT STATED HE [...] DECLINED. Kari VISIT COUNT (12 MO.) 1 [facility] [address] TOTAL 18 NOTE: Visits indicate total known visits. ED/UCC VISIT TRACKING (12 MO.) 07/07/2022 10:51 [facility] [place] TYPE: Emergency COMPLAINT: - CHEST PAIN 06/14/2022 10:45 [facility] [place] TYPE: Emergency COMPLAINT: - CHEST PAIN DIAGNOSES: - Pleurodynia - Pain in thoracic spine 05/26/2022 05:05 [facility] [place] TYPE: Emergency COMPLAINT: - PANIC ATTACK DIAGNOSES: - Panic disorder [episodic paroxysmal anxiety] 05/12/2022 20:11 [facility] [place] TYPE: Emergency COMPLAINT: - CHEST PAIN DIAGNOSES: - Other chest pain - Procedure and treatment not carried out due to patient leaving prior to being seen by health care provider 2022 01:15 [facility] [place] TYPE: Emergency COMPLAINT: - EYE PAIN/ PROBLEM DIAGNOSES: - Photokeratitis, bilateral 04/11/2022 19:49 [facility] [place] TYPE: Emergency COMPLAINT: - HEAD PRESSURE DIAGNOSES: - Headache, unspecified - Anxiety disorder, unspecified 03/23/2022 02:23 [facility] [place] TYPE: Emergency COMPLAINT: - CHEST PAIN DIAGNOSES: - Other chest pain - Other mcfp (current) drug therapy 03/16/2022 16:00 [facility] [place] TYPE: Emergency COMPLAINT: - NAUSEA,WEAKNESS DIAGNOSES: - Other malaise - Generalized hyperhidrosis - Headache, unspecified - Nausea 03/13/2022 22:35 [facility] [place] TYPE: Emergency COMPLAINT: - CHEST PAIN DIAGNOSES: - Other chest pain - Other mcfp (current) drug therapy 03/05/2022 03:04 [facility] [place] TYPE: Emergency COMPLAINT: - MEDICATION PROBLEM DIAGNOSES: - Other mcfp (current) drug therapy - Depression, unspecified - Anxiety disorder, unspecified 02/26/2022 00:02 [facility] [place] TYPE: Emergency COMPLAINT: - VISION PROBLEM/ EYE PAIN DIAGNOSES: - Other assistant terminal manager (current) drug therapy - Other specified disorders of eye and adnexa - Photokeratitis, bilateral - Other keratitis 02/12/2022 11:09 [facility] [place] TYPE: Emergency DIAGNOSES: - Laceration without foreign body of unspecified finger without damage to nail, initial encounter - LEFT HAND LACERATION OJI 02/12/22 - Laceration without foreign body of left hand, initial encounter 02/03/2022 10:03 [facility] [place] TYPE: Emergency COMPLAINT: - NAUSEA, PANICK ATTACKS, HEADACHE 01/18/2022 19:27 [facility] [place] TYPE: Emergency COMPLAINT: - CHEST PAIN DIAGNOSES: - Other chest pain - DEPRESSION, UNSPECIFIED - Anxiety disorder, unspecified - Depression, unspecified 12/19/2021 13:28 [facility] [place] TYPE: Emergency COMPLAINT: - L SIDE RIB PAIN, DIFFICULTY BREATHING DIAGNOSES: - Other chest pain - Anxiety disorder, unspecified 09/30/2021 09:49 [facility] [place] TYPE: Emergency COMPLAINT: - CONGESTION DIAGNOSES: - Anxiety disorder, unspecified 09/25/2021 11:14 [facility] [place] TYPE: Emergency COMPLAINT: - ANXIETY DIAGNOSES: - Anxiety disorder, unspecified 07/17/2021 18:48 [facility] [place] TYPE: Emergency COMPLAINT: - DIFFICULTY BREATHING DIAGNOSES: - Dyspnea, unspecified - Shortness of breath INPATIENT VISIT TRACKING (12 MO.) No inpatient visits to display in this time frame [email or web address]
== END 2022-07-07 12:50 | disposition home or self-care (01) ==
LOC: ED 10:50
DX: R07.89 Other chest pain (principal)
CPT/HCPCS: 93005; 93010; 99284-25

== ENCOUNTER 2022-07-23 05:05 | Emergency (ER) | payer BC, OTHER ==
[~2022-07-23] VITALS: Ht 182.9 cm; Wt 69.8 kg
--- OUTSIDE RECORDS SUMMARY | 2022-07-23 05:09 | XMS ---
PreManage Notification: ILIANA LEY Security Aligning Checker Events 2 event(s) in the past 18 months Most recent security events: Elopement at [facility] 05/12/2022 20:11 - Patient eloped before treatment completed. - Patient with suicidal and/or homicidal ideations eloped. - Patient eloped with IV in place. Details: PATIENT LWBS Other at [facility] 02/03/2022 10:03 Details: PATIENT LWBS CRITERIA MET - 6 ED Visits in 6 Months - [facility] - 2 Visits in 30 Days CARE PROVIDERS DEBBIE MICHAEL Physician Utility Pipe Layer Current PHONE: [phone] ANABELLA SMITH [facility] Current PHONE: Unknown [facility] has no Care Guidelines for this patient. Care History Medical/Surgical 10/01/2021 [facility] - CHW CONTACTED PATIENT-PATIENT STATED HE [...] DECLINED. [place]ari VISIT COUNT (12 MO.) 1 [place] [id number] TOTAL 18 NOTE: Visits indicate total known visits. ED/UCC VISIT TRACKING (12 MO.) 07/23/2022 05:05 [facility] [place] TYPE: Emergency COMPLAINT: - BURNING CHEST 07/07/2022 10:51 [facility] [place] TYPE: Emergency COMPLAINT: - CHEST PAIN DIAGNOSES: - Other chest pain 06/14/2022 10:45 [facility] [place] TYPE: Emergency COMPLAINT: - CHEST PAIN DIAGNOSES: - Pain in thoracic spine - Pleurodynia 05/26/2022 05:05 [facility] [place] TYPE: [...] COMPLAINT: - CHEST PAIN DIAGNOSES: - Other halfway (current) drug therapy - Other chest pain 03/16/2022 16:00 [facility] [place] TYPE: Emergency COMPLAINT: - NAUSEA,WEAKNESS DIAGNOSES: - Generalized hyperhidrosis - Headache, unspecified - Nausea - Other malaise 03/13/2022 22:35 [facility] [place] TYPE: Emergency COMPLAINT: - CHEST PAIN DIAGNOSES: - Other halfway (current) drug therapy - Other chest pain 03/05/2022 03:04 [facility] [place] TYPE: Emergency COMPLAINT: - MEDICATION PROBLEM DIAGNOSES: - Depression, unspecified - Anxiety disorder, unspecified - 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 02/26/2022 00:02 [facility] [place] TYPE: Emergency COMPLAINT: - VISION PROBLEM/ EYE PAIN DIAGNOSES: - Other specified disorders of eye and adnexa - Photokeratitis, bilateral - Other keratitis - Other halfway (current) drug therapy 02/12/2022 11:09 [facility] [place] TYPE: Emergency DIAGNOSES: - LEFT HAND LACERATION OJI 02/12/22 - Laceration without foreign body of left hand, initial encounter - Laceration without foreign body of unspecified finger without damage to nail, initial encounter 02/03/2022 10:03 [facility] [place] TYPE: Emergency COMPLAINT: - NAUSEA, PANICK ATTACKS, HEADACHE 01/18/2022 19:27 [facility] [place] TYPE: Emergency COMPLAINT: - CHEST PAIN DIAGNOSES: - DEPRESSION, UNSPECIFIED - Anxiety disorder, unspecified - Depression, unspecified - Other chest pain 12/19/2021 13:28 [facility] [place] TYPE: Emergency COMPLAINT: - L SIDE RIB PAIN, DIFFICULTY BREATHING DIAGNOSES: - Anxiety disorder, unspecified - Other chest pain 09/30/2021 09:49 [facility] [place] TYPE: Emergency COMPLAINT: - CONGESTION DIAGNOSES: - Anxiety disorder, unspecified 09/25/2021 11:14 [facility] [place] TYPE: Emergency COMPLAINT: - ANXIETY DIAGNOSES: - Anxiety disorder, unspecified INPATIENT VISIT TRACKING (12 MO.) No inpatient visits to display in this time frame [email or web address]
[2022-07-23] MEDS ORDERED: PRILOSEC OTC20 MG PO (06:17)
== END 2022-07-23 06:28 | disposition home or self-care (01) ==
LOC: ED 05:05
DX: K21.9 Gastro-esophageal reflux disease without esophagitis (principal); F41.9 Anxiety disorder, unspecified
CPT/HCPCS: 99283; A9270

== ENCOUNTER 2022-09-10 03:10 | Emergency (ER) | payer BC, OTHER ==
[~2022-09-10] VITALS: Ht 182.9 cm; Wt 69.8 kg
[~2022-09-10 03:10] MED LIST changes: +PRILOSEC OTC20 MG PO
--- OUTSIDE RECORDS SUMMARY | 2022-09-10 03:12 | XMS ---
PreManage Notification: ILIANA LEY Security Punching Machine Operator Events 2 event(s) in the past 18 months Most recent security events: Elopement at [facility] 05/12/2022 20:11 - Patient eloped before treatment completed. - Patient with suicidal and/or homicidal ideations eloped. - Patient eloped with IV in place. Details: PATIENT LWBS Other at [facility] 02/03/2022 10:03 Details: PATIENT LWBS CRITERIA MET - 6 ED Visits in 6 Months - [facility] CARE PROVIDERS DEBBIE MICHAEL Physician Inspector [employer] Current PHONE: [phone] SARAH [facility] Current PHONE: Unknown [facility] has no Care Guidelines for this patient. Care History Medical/Surgical 10/01/2021 [facility] - CHW CONTACTED PATIENT-PATIENT STATED HE JUST MOVED TO THE AREA AND DID NOT WANT TO PROVIDE HIS CURRENT ADDRESS. - PATIENT STATED HE WILL LOOK AT THE PROVIDER LIST THE ED PROVIDED AND SET UP A PCP IN THE AREA. - CHW ASKED IF HE WOULD LIKE ASSISTANCE WITH SETTING UP AN APT AND PATIENT DECLINED. [place] VISIT COUNT (12 MO[address] [facility] [address] TOTAL 19 NOTE: Visits indicate total known visits. 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 - Depression, unspecified - Anxiety disorder, unspecified 02/26/2022 00:02 [facility] [facility] [place] TYPE: Emergency COMPLAINT: - VISION PROBLEM/ EYE PAIN DIAGNOSES: - Other keratitis - 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 - Other specified disorders of eye and adnexa - Photokeratitis, bilateral 02/12/2022 11:09 [facility] [place] TYPE: Emergency DIAGNOSES: - Laceration without foreign body of unspecified finger without damage to nail, initial encounter - LEFT HAND LACERATION IvanJI 02/12/22 - Laceration without foreign body of left hand, initial encounter 02/03/2022 10:03 [facility] [place] TYPE: Emergency COMPLAINT: - NAUSEA, PANICK ATTACKS, HEADACHE 01/18/2022 19:27 [facility] [place] TYPE: Emergency COMPLAINT: - CHEST PAIN DIAGNOSES: - Depression, unspecified - Other chest pain - DEPRESSION, UNSPECIFIED - Anxiety disorder, unspecified 12/19/2021 13:28 [facility] [place] TYPE: Emergency COMPLAINT: - L SIDE RIB PAIN, DIFFICULTY BREATHING DIAGNOSES: - Other chest pain - Anxiety disorder, unspecified 09/30/2021 09:49 [facility] [place] TYPE: Emergency COMPLAINT: - CONGESTION DIAGNOSES: - Anxiety disorder, unspecified 09/25/2021 11:14 [facility] [place] TYPE: Emergency COMPLAINT: - ANXIETY DIAGNOSES: - Anxiety disorder, unspecified INPATIENT VISIT TRACKING (12 MO.) No inpatient visits to display in this time frame [email or web address]
== END 2022-09-10 03:30 | disposition home or self-care (01) ==
LOC: ED 03:10
DX: R07.89 Other chest pain (principal)
CPT/HCPCS: 99283

== ENCOUNTER 2022-12-05 00:37 | Emergency (ER) | payer BC, OTHER ==
[~2022-12-05] VITALS: Ht 182.9 cm; Wt 70.3 kg
--- OUTSIDE RECORDS SUMMARY | 2022-12-05 00:39 | XMS ---
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 - Patient with suicidal and/or homicidal ideations eloped. - Patient eloped with IV in place. 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 Care History Medical/Surgical 10/01/2021 [facility] - CHW CONTACTED PATIENT-PATIENT STATED HE JUST MOVED TO THE AREA AND DID NOT WANT TO PROVIDE HIS CURRENT ADDRESS. - PATIENT STATED HE WILL LOOK AT THE PROVIDER LIST THE ED PROVIDED AND SET UP A PCP IN THE AREA. - CHW ASKED IF HE WOULD LIKE ASSISTANCE WITH SETTING UP AN APT AND PATIENT DECLINED. E.D. VISIT COUNT (12 MO.) 1 [facility] [address] [facility] [address] [facility] TOTAL 18 NOTE: Visits indicate total known visits. ED/UCC VISIT TRACKING (12 MO.) 12/05/2022 00:37 [facility] [place] TYPE: Emergency COMPLAINT: - VOMITING,DIARRHEA 09/10/2022 03:10 [facility] [place] TYPE: Emergency COMPLAINT: - CHEST DISCOMFORT DIAGNOSES: - Other chest pain 07/23/2022 05:05 [facility] [place] TYPE: [...] Anxiety disorder, unspecified 03/23/2022 02:23 [facility] [place] TYPE: Emergency COMPLAINT: - CHEST PAIN DIAGNOSES: - Other chest pain - Other long term care administrator (current) drug therapy 03/16/2022 16:[address] [facility] [place] TYPE: Emergency COMPLAINT: - NAUSEA,WEAKNESS DIAGNOSES: - Nausea - Other malaise - Generalized hyperhidrosis - Headache, unspecified 03/13/2022 22:[address] [facility] [place] TYPE: Emergency COMPLAINT: - CHEST PAIN DIAGNOSES: - Other chest pain - Other long term care administrator (current) drug therapy 03/05/2022 03:[address] [facility] [place] TYPE: Emergency COMPLAINT: - MEDICATION PROBLEM DIAGNOSES: - Other long term care administrator (current) drug therapy - Depression, unspecified - Anxiety disorder, unspecified 02/26/2022 00:[address] [facility] [address] [facility] [place] TYPE: Emergency COMPLAINT: - VISION PROBLEM/ EYE PAIN DIAGNOSES: - Other keratitis - Other long term care administrator (current) drug therapy - Other specified disorders of eye and adnexa - Photokeratitis, bilateral 02/12/2022 11:09 [facility] [place] TYPE: Emergency DIAGNOSES: [...] Other chest pain - Anxiety disorder, unspecified INPATIENT VISIT TRACKING (12 MO.) No inpatient visits to display in this time frame [email or web address]
[2022-12-05] MEDS ORDERED: LOMOTIL TABLET1 EACH PO (01:40)
[2022-12-05] MEDS ORDERED: ONDANSETRON ODT8 MG PO (01:40)
== END 2022-12-05 01:51 | disposition home or self-care (01) ==
LOC: ED 00:37
DX: K52.9 Noninfective gastroenteritis and colitis, unspecified (principal); Z20.822 Contact with and (suspected) exposure to COVID-19
CPT/HCPCS: 36415; 80053; 85025; 87502; 99284; A9270; C9803; U0003